=== PATIENT | female | born 1950 | race Caucasian/White ===

== ENCOUNTER 2018-04-10 06:05 | Emergency (ER) | payer OTHER ==
[~2018-04-10] VITALS: Ht 175.3 cm; Wt 90.9 kg
[2018-04-10 06:13] VITALS: Ht 175.3 cm; Wt 90.9 kg
[2018-04-10] MEDS ORDERED: NEURONTIN 400400 MG (06:16)
[2018-04-10] MEDS ORDERED: GLUCOPHAGE500 MG (06:16)
[2018-04-10] MEDS ORDERED: TOPAMAX50 MG (06:16)
[2018-04-10] MEDS ORDERED: MAXZIDE 75/501 TAB (06:17)
[2018-04-10] MEDS ORDERED: ULTRAM50 MG (06:17)
[2018-04-10 07:03] LABS: BASOPHILS 0.4 % (0-2); EOSINOPHILS 0 % (0-7); HEMATOCRIT 36.2 % (36.0-48.0); HEMOGLOBIN 12.7 g/dL (12-16); IMMATURE GRANULOCYTES 0.3 % (0-5); LYMPHOCYTES 12.3 % (15-50); MCH 32.1 pg (26.0-34.0); MCHC 35.1 g/dL (31.0-37.0); MCV 91.4 fL (80.0-100.0); MEAN PLATELET VOLUME 10.1 fL (7.4-10.4); MONOCYTES 5.3 % (2-11); NEUTROPHILS 81.7 % (40-80); PLATELET COUNT 281 10x3/uL (130-400); RBC 3.96 10x6/uL (4.00-5.40); RDW 11.8 % (11.5-14.5)
[2018-04-10 07:19] LABS: INR 1.24 (0.85-1.17); PROTIME 15.1 SECONDS (11.6-15.0)
[2018-04-10 07:20] LABS: APTT 34.3 SECONDS (22.8-39.4)
[2018-04-10 07:29] LABS: ALBUMIN 3.7 g/dL (3.4-5.0); ALKALINE PHOSPHATASE 73 U/L (46-116); ALT (SGPT) 56 U/L (10-68); CALC OSMOLALITY 277 mosm/kg (275-300); CALCIUM 8.4 mg/dL (8.5-10.1); CARBON DIOXIDE 26.9 mmol/L (21.0-32.0); CHLORIDE - SERUM 99 mmol/L (98-107); CREATINE KINASE 263 UL (21-215); CREATININE - SERUM 1.1 mg/dL (0.6-1.3); GLUCOSE 144 mg/dL (74-106); MAGNESIUM - SERUM 1.3 mg/dL (1.8-2.4); PROTEIN - SERUM 7.8 g/dL (6.4-8.2); SODIUM 138 mmol/L (136-145); UREA NITROGEN 11 mg/dL (7-18); eGFR NON AFRICAN AMERICAN 53 mL/min (90-120)
[2018-04-10 07:39] LABS: POTASSIUM - SERUM 2.9 mmol/L (3.5-5.1); TROPONIN-I 4.614 ng/mL (0.000-0.060)
[2018-04-10 07:53] LABS: CKMB 7.1 U/L (0.0-3.6)
[2018-04-10 08:06] VITALS: BP 150/86
== END 2018-04-10 08:10 | disposition short-term general hospital (02) ==
LOC: D.ER 06:05
PROVIDERS: Family Medicine
DX: G40.909 Epilepsy, unspecified, not intractable, without status epilepticus (principal); R74.0 Nonspecific elevation of levels of transaminase and lactic acid dehydrogenase [LDH]; R79.89 Other specified abnormal findings of blood chemistry; R47.01 Aphasia